=== PATIENT | male | born 1990 | race Two or more races ===

== ENCOUNTER → 2018-11-17 | Outpatient (REF) | payer OTHER ==
[~2018-11-17] MED LIST: ONDA4TAB6 PO; OSEL30CA PO
[2018-11-17 20:32] LABS: INFLUENZA A AMPLIFICATION POSITIVE (NEGATIVE); INFLUENZA B AMPLIFICATION NEGATIVE (NEGATIVE)
== END ==
LOC: M LAB REF 08:41
PROVIDERS: ATTEND Physician Assistant
DX: J02.9 Acute pharyngitis, unspecified (principal)

== ENCOUNTER 2018-11-20 06:31 | Emergency (ER) | payer OTHER ==
[~2018-11-20] VITALS: Ht 180.3 cm; Wt 100.0 kg
[2018-11-20] MEDS ORDERED: OSEL30CA PO (06:36)
[2018-11-20] MEDS ORDERED: NS 1,000 ML IV ONE (07:00)
[2018-11-20 07:22] LABS: BASO % 0.5 % (0.0-1.0); EOS # 0.1 10^3/uL (0.0-0.50); EOS % 1.4 % (0.0-3.0); HEMATOCRIT 43.3 % (42.0-52.0); HEMOGLOBIN 14.6 g/dl (13.5-17.5); LYMPH # 1.5 10^3/uL (1.5-6.5); LYMPH % 22.2 % (24.0-44.0); MEAN CORPUSCULAR HEMOGLOBIN 28.6 pg (27.0-33.0); MEAN CORPUSCULAR HGB CONC 33.7 g/dl (32.0-36.5); MEAN CORPUSCULAR VOLUME 84.7 fl (80.0-96.0); MONO # 0.5 10^3/uL (0.0-0.8); NEUTROPHILS # 4.5 10^3/uL (1.8-7.7); NEUTROPHILS % 68.6 % (36.0-66.0); PLATELET COUNT, AUTOMATED 222 10^3/uL (150-450); RED BLOOD COUNT 5.11 10^6/uL (4.30-6.10); WHITE BLOOD COUNT 6.6 10^3/uL (4.0-10.0)
[2018-11-20 07:52] LABS: ALT/SGPT 19 U/L (12-78); AMYLASE 36 U/L (25-115); BILIRUBIN,DIRECT < 0.1 MG/DL (0.0-0.2); BILIRUBIN,TOTAL 0.3 MG/DL (0.2-1.0); BLOOD UREA NITROGEN 14 MG/DL (7-18); CALCIUM LEVEL 8.8 MG/DL (8.5-10.1); CARBON DIOXIDE LEVEL 27 MEQ/L (21-32); CHLORIDE LEVEL 105 MEQ/L (98-107); CREATININE FOR GFR 0.79 MG/DL (0.70-1.30); GLOMERULAR FILTRATION RATE > 60.0 (>60); GLUCOSE, FASTING 98 MG/DL (70-100); LIPASE 88 U/L (73-393); POTASSIUM SERUM 4.2 MEQ/L (3.5-5.1); SODIUM LEVEL 139 MEQ/L (136-145); TOTAL PROTEIN 7.4 GM/DL (6.4-8.2)
--- NOTE | 2018-11-20 08:32 | REP ---
Abdominal right upper quadrant ultrasound for right upper quadrant pain and nausea: There is a positive Perkins's sign. There is a calculus in the gallbladder neck. The gallbladder is distended. There is gallbladder wall thickening measuring up to 3.5 mm. Findings are compatible with acute cholecystitis. There is no pericholecystic fluid. There is no intrahepatic or extrahepatic biliary duct dilatation. The common biliary duct measures 4.8 mm in diameter. The hepatic parenchyma is homogeneous and otherwise unremarkable. There are no hepatic masses. The pancreas is obscured by bowel gas. There is no right renal calculus, hydronephrosis t, mass or cyst. The abdominal aorta is obscured by bowel. There is no right upper quadrant ascites. Impression: There is a calculus in the gallbladder neck. The gallbladder is distended. There is gallbladder wall thickening measuring up to 3.5 mm. These findings are compatible with acute cholecystitis. There is no pericholecystic fluid. Electronically Signed by Adtiya Oh MD 11/20/2018 08:24 A
[2018-11-20] MEDS ORDERED: ONDA4TAB6 PO (08:39)
[2018-11-20 08:47] VITALS: BP 124/74
--- NOTE | 2018-11-20 19:32 | ED PDOC ---
Post-Departure Follow-Up dr perez and ft shari duran faxed formal report of us for fu Maulik Crane MD Nov 20, 2018 19:32
== END 2018-11-20 08:53 | disposition home or self-care (01) ==
LOC: M ED 06:31
DX: K80.60 Calculus of gallbladder and bile duct with cholecystitis, unspecified, without obstruction (principal); Z79.899 Other long term (current) drug therapy